=== PATIENT | female | born 1965 | race Two or more races ===

== ENCOUNTER 2017-10-06 07:05 | Outpatient (CLI) | payer OTHER | END 2017-10-06 07:14 | disposition home or self-care (01) | LOC: LAB 07:05 | DX: Z00.01 Encounter for general adult medical examination with abnormal findings (principal); E03.9 Hypothyroidism, unspecified; N39.0 Urinary tract infection, site not specified; E78.2 Mixed hyperlipidemia; Z12.11 Encounter for screening for malignant neoplasm of colon; Z11.4 Encounter for screening for human immunodeficiency virus [HIV]; R79.9 Abnormal finding of blood chemistry, unspecified; R79.89 Other specified abnormal findings of blood chemistry; Z21 Asymptomatic human immunodeficiency virus [HIV] infection status; I10 Essential (primary) hypertension; E55.9 Vitamin D deficiency, unspecified; Z11.3 Encounter for screening for infections with a predominantly sexual mode of transmission ==

== ENCOUNTER 2017-10-24 13:17 | Outpatient (CLI) | payer OTHER | END 2017-10-24 13:27 | disposition home or self-care (01) | LOC: MAMO-SONO 13:17 | DX: Z12.31 Encounter for screening mammogram for malignant neoplasm of breast (principal); N94.0 Mittelschmerz; R10.2 Pelvic and perineal pain; N94.89 Other specified conditions associated with female genital organs and menstrual cycle; N60.01 Solitary cyst of right breast; N60.02 Solitary cyst of left breast ==

== ENCOUNTER 2017-11-10 06:13 | Outpatient (CLI) | payer OTHER | END 2017-11-10 06:25 | disposition home or self-care (01) | LOC: LAB 06:13 → RAD 06:13 | DX: Z01.812 Encounter for preprocedural laboratory examination (principal); Z01.818 Encounter for other preprocedural examination ==

== ENCOUNTER 2017-11-28 05:40 | Day surgery (SDC) | payer OTHER | END 2017-11-28 13:10 | disposition home or self-care (01) | LOC: CIR.AMB 05:40 | DX: N84.0 Polyp of corpus uteri (principal) ==

== ENCOUNTER 2018-05-23 12:44 | Outpatient (CLI) | payer OTHER | END 2018-05-23 13:16 | disposition home or self-care (01) | LOC: LAB 12:44 | DX: H61.311 Acquired stenosis of right external ear canal secondary to trauma (principal) ==

== ENCOUNTER 2020-01-31 16:02 | Outpatient (CLI) | payer OTHER | END 2020-01-31 18:00 | disposition home or self-care (01) | LOC: PPH VACUNA 16:02 | DX: Z23 Encounter for immunization (principal) ==

== ENCOUNTER → 2020-10-01 06:47 | Outpatient (CLI) | payer OTHER | END | disposition home or self-care (01) | LOC: RAD 06:47 | DX: R76.11 Nonspecific reaction to tuberculin skin test without active tuberculosis (principal) ==

== ENCOUNTER → 2020-12-24 14:46 | Outpatient (CLI) | payer OTHER | END | disposition home or self-care (01) | LOC: LAB 14:46 | PROVIDERS: ATTEND Emergency Medicine Pediatric Emergency Medicine | DX: Z03.818 Encounter for observation for suspected exposure to other biological agents ruled out (principal) ==

== ENCOUNTER 2020-12-31 07:05 | Outpatient (CLI) | payer OTHER | END 2020-12-31 09:07 | disposition home or self-care (01) | LOC: LAB 07:05 | PROVIDERS: ATTEND Emergency Medicine Pediatric Emergency Medicine | DX: Z03.818 Encounter for observation for suspected exposure to other biological agents ruled out (principal) ==

== ENCOUNTER 2021-01-02 08:00 | Outpatient (CLI) | payer OTHER | END 2021-01-02 08:30 | disposition home or self-care (01) | LOC: PPH VACUNA 08:00 | DX: Z23 Encounter for immunization (principal) ==

== ENCOUNTER 2021-01-23 10:43 | Outpatient (CLI) | payer OTHER | END 2021-01-23 10:54 | disposition home or self-care (01) | LOC: PPH VACUNA 10:43 | PROVIDERS: ATTEND Emergency Medicine Pediatric Emergency Medicine | DX: Z23 Encounter for immunization (principal) ==

== ENCOUNTER 2021-02-11 08:00 | Outpatient (CLI) | payer OTHER | END 2021-02-11 08:30 | disposition home or self-care (01) | LOC: PPH VACUNA 08:00 | PROVIDERS: ATTEND Emergency Medicine Pediatric Emergency Medicine | DX: Z23 Encounter for immunization (principal) ==

== ENCOUNTER → 2021-07-07 | Outpatient (CLI) | payer OTHER | END | disposition home or self-care (01) | LOC: PPH VACUNA 08:00 | PROVIDERS: ATTEND Emergency Medicine Pediatric Emergency Medicine | DX: Z23 Encounter for immunization (principal) ==

== ENCOUNTER 2021-09-22 13:40 | Outpatient (CLI) | payer OTHER | END 2021-09-22 13:48 | disposition home or self-care (01) | LOC: RAD 13:40 | DX: J18.9 Pneumonia, unspecified organism (principal) ==

== ENCOUNTER 2021-10-15 06:43 | Outpatient (CLI) | payer OTHER | END 2021-10-15 06:49 | disposition home or self-care (01) | LOC: LAB 06:43 | PROVIDERS: ATTEND Obstetrics & Gynecology | DX: I10 Essential (primary) hypertension (principal); E03.9 Hypothyroidism, unspecified; N39.0 Urinary tract infection, site not specified; Z11.4 Encounter for screening for human immunodeficiency virus [HIV]; E55.9 Vitamin D deficiency, unspecified; Z21 Asymptomatic human immunodeficiency virus [HIV] infection status; R79.9 Abnormal finding of blood chemistry, unspecified; R79.89 Other specified abnormal findings of blood chemistry; Z00.00 Encounter for general adult medical examination without abnormal findings ==

== ENCOUNTER 2021-10-16 07:39 | Outpatient (CLI) | payer OTHER | END 2021-10-16 07:45 | disposition home or self-care (01) | LOC: SONOGRAMA 07:39 | PROVIDERS: ATTEND Obstetrics & Gynecology | DX: N94.0 Mittelschmerz (principal); R10.2 Pelvic and perineal pain; N94.89 Other specified conditions associated with female genital organs and menstrual cycle ==

== ENCOUNTER 2021-10-21 07:17 | Outpatient (CLI) | payer OTHER | END 2021-10-21 07:50 | disposition home or self-care (01) | LOC: MAMO-SONO 07:17 | PROVIDERS: ATTEND Obstetrics & Gynecology | DX: N63.0 Unspecified lump in unspecified breast (principal); N64.59 Other signs and symptoms in breast; N64.9 Disorder of breast, unspecified ==

== ENCOUNTER 2021-11-24 06:13 | Outpatient (CLI) | payer OTHER | END 2021-11-24 06:14 | disposition home or self-care (01) | LOC: LAB 06:13 | PROVIDERS: ATTEND Internal Medicine | DX: I10 Essential (primary) hypertension (principal); M54.50 Low back pain, unspecified; Z01.810 Encounter for preprocedural cardiovascular examination; E03.9 Hypothyroidism, unspecified; E78.9 Disorder of lipoprotein metabolism, unspecified; E55.9 Vitamin D deficiency, unspecified; E11.51 Type 2 diabetes mellitus with diabetic peripheral angiopathy without gangrene ==

== ENCOUNTER 2021-12-02 08:43 | Outpatient (CLI) | payer OTHER | END 2021-12-02 08:51 | disposition home or self-care (01) | LOC: SONOGRAMA 08:43 | PROVIDERS: ATTEND Internal Medicine | DX: E03.9 Hypothyroidism, unspecified (principal) ==

== ENCOUNTER 2022-02-19 08:00 | Outpatient (CLI) | payer OTHER | END 2022-02-19 08:05 | disposition home or self-care (01) | LOC: PPH VACUNA 08:00 | PROVIDERS: ATTEND Emergency Medicine Pediatric Emergency Medicine | DX: Z23 Encounter for immunization (principal) ==

== ENCOUNTER → 2022-03-11 06:18 | Outpatient (CLI) | payer OTHER | END | disposition home or self-care (01) | LOC: LAB 06:18 | PROVIDERS: ATTEND Internal Medicine | DX: M54.50 Low back pain, unspecified (principal); E78.9 Disorder of lipoprotein metabolism, unspecified ==

== ENCOUNTER → 2022-04-19 12:47 | Outpatient (CLI) | payer OTHER | END | disposition home or self-care (01) | LOC: LAB 12:47 | PROVIDERS: ATTEND Internal Medicine | DX: Z20.828 Contact with and (suspected) exposure to other viral communicable diseases (principal) ==

== ENCOUNTER 2022-06-21 07:10 | Outpatient (CLI) | payer OTHER | END 2022-06-21 07:31 | disposition home or self-care (01) | LOC: LAB 07:10 | PROVIDERS: ATTEND Internal Medicine | DX: M54.50 Low back pain, unspecified (principal); E78.9 Disorder of lipoprotein metabolism, unspecified ==

== ENCOUNTER 2022-07-12 11:54 | Outpatient (CLI) | payer OTHER | END 2022-07-12 11:55 | disposition home or self-care (01) | LOC: LAB 11:54 | PROVIDERS: ATTEND Obstetrics & Gynecology | DX: N91.1 Secondary amenorrhea (principal); R05.8 Other specified cough ==

== ENCOUNTER 2022-09-20 06:34 | Outpatient (CLI) | payer OTHER | END 2022-09-20 06:38 | disposition home or self-care (01) | LOC: LAB 06:34 | PROVIDERS: ATTEND Internal Medicine | DX: M54.59 Other low back pain (principal); E78.9 Disorder of lipoprotein metabolism, unspecified ==

== ENCOUNTER → 2022-12-27 06:15 | Outpatient (CLI) | payer OTHER | END | disposition home or self-care (01) | LOC: LAB 06:15 | PROVIDERS: ATTEND Internal Medicine | DX: M54.59 Other low back pain (principal); E78.9 Disorder of lipoprotein metabolism, unspecified; Z12.11 Encounter for screening for malignant neoplasm of colon ==

== ENCOUNTER 2023-01-21 07:14 | Outpatient (CLI) | payer OTHER | END 2023-01-21 07:24 | disposition home or self-care (01) | LOC: PPH VACUNA 07:14 | PROVIDERS: ATTEND Emergency Medicine Pediatric Emergency Medicine | DX: Z23 Encounter for immunization (principal) | CPT/HCPCS: 90686; G0008 ==

== ENCOUNTER 2023-04-21 07:15 | Outpatient (CLI) | payer OTHER ==
[2023-04-21 08:04] LABS: HEMOGLOBIN 14.1 g/dL (12.0-15.00); MEAN CELL VOLUME 88.7 fL (80.00-100.00); MEAN CORPUSCULAR HEMOGLOBIN 29.8 pg (27.00-32.0); MEAN CORPUSCULAR HGB CONC 33.6 g/dl (32.0-36.0); PLATELET COUNT 357 K/uL (150-450); RED BLOOD COUNT 4.74 M/uL (4.00-6.00); RED CELL DISTRIBUTION WIDTH 13.8 % (11.5-14.5)
[2023-04-21 08:08] LABS: PH,URINE 7.5 (5.0-8.0); URINE APPEARANCE Clear; URINE BILIRRUBIN Negative (NEGATIVE); URINE BLOOD Trace; URINE COLOR Yellow; URINE GLUCOSE Negative (NEGATIVE); URINE LEUKOCYTE Negative; URINE NITRATE Negative; URINE PROTEIN Negative (NEGATIVE); URINE UROBILINOGEN 0.2 E.U./dl
[2023-04-21 08:11] LABS: URINE BACTERIA 139.6 uL (0.0-1933); URINE RBC 10.2 uL (0.0-20.8)
[2023-04-21 08:13] LABS: URINE WBC 0.1 uL (0.0-23.2)
[2023-04-21 08:49] LABS: BILIRUBIN TOTAL 0.72 mg/dL (0.3-1.2); CALCIUM 9.3 mg/dL (8.5-10.1); CREATININE SERUM 0.58 mg/dL (0.55-1.02); GFR 107.54; GLOBULINA 3.7 G/DL (2.4-3.5); POTASSIUM 3.92 mEq/L (3.5-5.1); TOTAL PROTEIN 7.7 gm/dL (6.4-8.2); TSH 1.63 uIU/mL (0.358-3.74)
[2023-04-21 10:54] LABS: T4 TOTAL 7.26 UG/DL (4.8-13.9)
== END 2023-04-21 07:17 | disposition home or self-care (01) ==
LOC: LAB 07:15
PROVIDERS: ATTEND Emergency Medicine Pediatric Emergency Medicine
DX: M54.59 Other low back pain (principal); E78.9 Disorder of lipoprotein metabolism, unspecified

== ENCOUNTER 2023-07-11 15:21 | Outpatient (CLI) | payer OTHER | END 2023-07-11 15:24 | disposition home or self-care (01) | LOC: RAD 15:21 | DX: J10.00 Influenza due to other identified influenza virus with unspecified type of pneumonia (principal) ==

== ENCOUNTER 2023-08-18 06:21 | Outpatient (CLI) | payer OTHER ==
[2023-08-18 07:32] LABS: HEMATOCRIT 42.5 % (36.0-45.00); HEMOGLOBIN 14.3 g/dL (12.0-15.00); MEAN CELL VOLUME 87.8 fL (80.00-100.00); MEAN CORPUSCULAR HEMOGLOBIN 29.5 pg (27.00-32.0); MEAN CORPUSCULAR HGB CONC 33.6 g/dl (32.0-36.0); PLATELET COUNT 322 K/uL (150-450); RED BLOOD COUNT 4.84 M/uL (4.00-6.00); RED CELL DISTRIBUTION WIDTH 13.7 % (11.5-14.5); URINE BACTERIA 221.7 uL (0.0-1933); URINE EPITHELIAL CELLS 6.1 uL (0.0-38.8); URINE RBC 14.6 uL (0.0-20.8); URINE WBC 5.8 uL (0.0-23.2)
[2023-08-18 07:42] LABS: PH,URINE 5.5; URINE BILIRRUBIN NEGATIVE (NEGATIVE); URINE BLOOD SMALL; URINE GLUCOSE NEGATIVE (NEGATIVE); URINE LEUKOCYTE NEGATIVE; URINE NITRATE NEGATIVE; URINE PROTEIN NEGATIVE (NEGATIVE); URINE UROBILINOGEN 0.2 E.U./dl
[2023-08-18 07:50] LABS: URINE APPEARANCE CLEAR; URINE COLOR YELLOW
[2023-08-18 08:21] LABS: ALBUMIN 4.4 gm/dL (3.4-5.0); BILIRUBIN TOTAL 0.43 mg/dL (0.3-1.2); CALCIUM 9.9 mg/dL (8.5-10.1); CHOL HDL RATIO 3.4 (0-5.0); CREATININE SERUM 0.76 mg/dL (0.55-1.02); GFR 78.72; GLOBULINA 4.1 G/DL (2.4-3.5); POTASSIUM 4.12 mEq/L (3.5-5.1); T4 TOTAL 7.61 UG/DL (4.8-13.9); TOTAL PROTEIN 8.5 gm/dL (6.4-8.2); TSH 1.26 uIU/mL (0.358-3.74)
[2023-08-18 09:47] LABS: ob POSITIVE (NEGATIVE)
== END 2023-08-18 06:23 | disposition home or self-care (01) ==
LOC: LAB 06:21
PROVIDERS: ATTEND Internal Medicine
DX: M54.50 Low back pain, unspecified (principal); E78.9 Disorder of lipoprotein metabolism, unspecified

== ENCOUNTER 2023-11-16 08:20 | Outpatient (CLI) | payer OTHER ==
[2023-11-16 09:17] LABS: HEMATOCRIT 38.5 % (36.0-45.00); HEMOGLOBIN 13.5 g/dL (12.0-15.00); MEAN CELL VOLUME 87.7 fL (80.00-100.00); MEAN CORPUSCULAR HEMOGLOBIN 30.7 pg (27.00-32.0); PLATELET COUNT 288 K/uL (150-450); RED BLOOD COUNT 4.39 M/uL (4.00-6.00); RED CELL DISTRIBUTION WIDTH 13.9 % (11.5-14.5)
[2023-11-16 09:21] LABS: PH,URINE 6.5 (5.0-8.0); URINE APPEARANCE Clear; URINE BILIRRUBIN Negative (NEGATIVE); URINE BLOOD Trace; URINE COLOR Yellow; URINE GLUCOSE Negative (NEGATIVE); URINE LEUKOCYTE Negative; URINE NITRATE Negative; URINE PROTEIN Negative (NEGATIVE); URINE UROBILINOGEN 0.2 E.U./dl
[2023-11-16 09:26] LABS: URINE BACTERIA 37.7 uL (0.0-1933); URINE RBC 13.5 uL (0.0-20.8)
[2023-11-16 09:31] LABS: URINE WBC 0.7 uL (0.0-23.2)
[2023-11-16 09:50] LABS: ALBUMIN 3.9 gm/dL (3.4-5.0); BILIRUBIN TOTAL 0.52 mg/dL (0.3-1.2); CALCIUM 9.8 mg/dL (8.5-10.1); CREATININE SERUM 0.68 mg/dL (0.55-1.02); GFR 89.5; GLOBULINA 3.8 G/DL (2.4-3.5); POTASSIUM 3.89 mEq/L (3.5-5.1); TOTAL PROTEIN 7.7 gm/dL (6.4-8.2)
== END 2023-11-16 08:21 | disposition home or self-care (01) ==
LOC: LAB 08:20
PROVIDERS: ATTEND Internal Medicine
DX: E78.9 Disorder of lipoprotein metabolism, unspecified (principal); I10 Essential (primary) hypertension; E03.9 Hypothyroidism, unspecified; K92.1 Melena; K64.8 Other hemorrhoids

== ENCOUNTER 2024-01-30 07:36 | Outpatient (CLI) | payer OTHER | END 2024-01-30 07:44 | disposition home or self-care (01) | LOC: MAMO-SONO 07:36 | PROVIDERS: ATTEND Internal Medicine | DX: E78.9 Disorder of lipoprotein metabolism, unspecified (principal); I10 Essential (primary) hypertension; E03.9 Hypothyroidism, unspecified; K92.1 Melena; K64.8 Other hemorrhoids ==

== ENCOUNTER 2024-01-31 13:55 | Outpatient (CLI) | payer OTHER | END 2024-01-31 13:58 | disposition home or self-care (01) | LOC: LAB 13:55 | PROVIDERS: ATTEND Preventive Medicine Occupational Medicine | DX: B19.10 Unspecified viral hepatitis B without hepatic coma (principal) ==

== ENCOUNTER 2024-02-21 09:45 | Outpatient (CLI) | payer OTHER | END 2024-02-21 10:00 | disposition home or self-care (01) | LOC: PPH VACUNA 09:45 | PROVIDERS: ATTEND Emergency Medicine Pediatric Emergency Medicine | DX: Z23 Encounter for immunization (principal) ==

== ENCOUNTER 2024-02-23 07:39 | Outpatient (CLI) | payer OTHER ==
[2024-02-23 09:06] LABS: ob NEGATIVE (NEGATIVE)
[2024-02-23 09:09] LABS: PH,URINE 6.5 (5.0-8.0); URINE APPEARANCE Clear; URINE BILIRRUBIN Negative (NEGATIVE); URINE BLOOD Negative; URINE COLOR Yellow; URINE GLUCOSE Negative (NEGATIVE); URINE KETONE Negative (NEGATIVE); URINE LEUKOCYTE Trace; URINE NITRATE Negative; URINE PROTEIN Negative (NEGATIVE); URINE UROBILINOGEN 0.2 E.U./dl
[2024-02-23 09:12] LABS: HEMATOCRIT 40.3 % (36.0-45.00); HEMOGLOBIN 13.8 g/dL (12.0-15.00); MEAN CELL VOLUME 88.8 fL (80.00-100.00); MEAN CORPUSCULAR HEMOGLOBIN 30.3 pg (27.00-32.0); MEAN CORPUSCULAR HGB CONC 34.1 g/dl (32.0-36.0); PLATELET COUNT 321 K/uL (150-450); RED BLOOD COUNT 4.54 M/uL (4.00-6.00); RED CELL DISTRIBUTION WIDTH 13.7 % (11.5-14.5)
[2024-02-23 09:14] LABS: URINE RBC 24.5 uL (0.0-20.8); URINE WBC 4.1 uL (0.0-23.2)
[2024-02-23 10:11] LABS: ALBUMIN 4.2 gm/dL (3.4-5.0); BILIRUBIN TOTAL 0.53 mg/dL (0.3-1.2); CALCIUM 9.7 mg/dL (8.5-10.1); CREATININE SERUM 0.7 mg/dL (0.55-1.02); GFR 86.56; GLOBULINA 3.6 G/DL (2.4-3.5); POTASSIUM 4.49 mEq/L (3.5-5.1); T4 TOTAL 7.41 UG/DL (4.8-13.9); TOTAL PROTEIN 7.8 gm/dL (6.4-8.2); TSH 1.01 uIU/mL (0.358-3.74)
== END 2024-02-23 07:44 | disposition home or self-care (01) ==
LOC: LAB 07:39
PROVIDERS: ATTEND Emergency Medicine Pediatric Emergency Medicine
DX: E78.9 Disorder of lipoprotein metabolism, unspecified (principal); I10 Essential (primary) hypertension; E03.9 Hypothyroidism, unspecified; K92.1 Melena; K64.8 Other hemorrhoids

== ENCOUNTER 2024-05-24 06:31 | Outpatient (CLI) | payer OTHER ==
[2024-05-24 07:27] LABS: PH,URINE 5.5 (5.0-8.0); URINE APPEARANCE Clear; URINE BILIRRUBIN Negative (NEGATIVE); URINE BLOOD Negative; URINE COLOR Yellow; URINE GLUCOSE Negative (NEGATIVE); URINE KETONE Negative (NEGATIVE); URINE LEUKOCYTE Negative; URINE NITRATE Negative; URINE PROTEIN Negative (NEGATIVE); URINE UROBILINOGEN 0.2 E.U./dl
[2024-05-24 07:31] LABS: URINE BACTERIA 8.5 uL (0.0-1933); URINE RBC 2.7 uL (0.0-20.8)
[2024-05-24 07:40] LABS: HEMATOCRIT 41.3 % (36.0-45.00); HEMOGLOBIN 13.5 g/dL (12.0-15.00); MEAN CELL VOLUME 88.3 fL (80.00-100.00); MEAN CORPUSCULAR HEMOGLOBIN 28.9 pg (27.00-32.0); MEAN CORPUSCULAR HGB CONC 32.8 g/dl (32.0-36.0); PLATELET COUNT 335 K/uL (150-450); RED BLOOD COUNT 4.67 M/uL (4.00-6.00); RED CELL DISTRIBUTION WIDTH 13.8 % (11.5-14.5)
[2024-05-24 07:40] LABS: URINE CAST 0.14 uL (0.0-1.40); URINE EPITHELIAL CELLS 0.1 uL (0.0-38.8); URINE WBC 1.1 uL (0.0-23.2)
[2024-05-24 07:47] LABS: ob NEGATIVE (NEGATIVE)
[2024-05-24 08:44] LABS: CHOL HDL RATIO 3.3 (0-5.0); T4 TOTAL 8.4 UG/DL (4.8-13.9); TSH 1.36 uIU/mL (0.358-3.74)
[2024-05-24 14:34] LABS: T3 TOTAL 1.13 ng/ml (0.846-2.02); VITAMIN D3 25 HYDROXY 101.5 ng/ml (30-120)
== END 2024-05-24 06:32 | disposition home or self-care (01) ==
LOC: LAB 06:31
PROVIDERS: ATTEND Internal Medicine
DX: E78.9 Disorder of lipoprotein metabolism, unspecified (principal); I10 Essential (primary) hypertension; E03.9 Hypothyroidism, unspecified; K92.1 Melena; K64.8 Other hemorrhoids; M54.50 Low back pain, unspecified

== ENCOUNTER 2024-06-25 12:30 | Outpatient (CLI) | payer OTHER | END 2024-06-25 12:34 | disposition home or self-care (01) | LOC: RAD 12:30 | DX: J18.9 Pneumonia, unspecified organism (principal) ==

== ENCOUNTER 2024-08-16 06:24 | Outpatient (CLI) | payer OTHER ==
[2024-08-16 07:45] LABS: HEMATOCRIT 41.7 % (36.0-45.00); HEMOGLOBIN 13.6 g/dL (12.0-15.00); MEAN CELL VOLUME 89.4 fL (80.00-100.00); MEAN CORPUSCULAR HEMOGLOBIN 29.2 pg (27.00-32.0); MEAN CORPUSCULAR HGB CONC 32.7 g/dl (32.0-36.0); PLATELET COUNT 303 K/uL (150-450); RED BLOOD COUNT 4.66 M/uL (4.00-6.00); RED CELL DISTRIBUTION WIDTH 13.8 % (11.5-14.5)
[2024-08-16 07:49] LABS: PH,URINE 6.5 (5.0-8.0); URINE APPEARANCE Clear; URINE BILIRRUBIN Negative (NEGATIVE); URINE BLOOD Negative; URINE COLOR Yellow; URINE GLUCOSE Negative (NEGATIVE); URINE KETONE Negative (NEGATIVE); URINE LEUKOCYTE Negative; URINE NITRATE Negative; URINE PROTEIN Negative (NEGATIVE); URINE UROBILINOGEN 0.2 E.U./dl
[2024-08-16 07:53] LABS: URINE EPITHELIAL CELLS 2.5 uL (0.0-38.8); URINE RBC 2.2 uL (0.0-20.8); URINE WBC 3.1 uL (0.0-23.2)
[2024-08-16 08:36] LABS: CHOL HDL RATIO 3.7 (0-5.0); T4 TOTAL 7.87 UG/DL (4.8-13.9); TSH 2.23 uIU/mL (0.358-3.74)
== END 2024-08-16 06:28 | disposition home or self-care (01) ==
LOC: LAB 06:24
PROVIDERS: ATTEND Internal Medicine
DX: E78.9 Disorder of lipoprotein metabolism, unspecified (principal); I10 Essential (primary) hypertension; E03.9 Hypothyroidism, unspecified; K92.1 Melena; K64.8 Other hemorrhoids

== ENCOUNTER → 2024-10-25 12:46 | Outpatient (CLI) | payer OTHER | END | disposition home or self-care (01) | LOC: NUCLEAR 12:46 | PROVIDERS: ATTEND Internal Medicine | DX: Z13.820 Encounter for screening for osteoporosis (principal); M81.0 Age-related osteoporosis without current pathological fracture ==

== ENCOUNTER 2024-11-19 06:07 | Outpatient (CLI) | payer OTHER ==
[2024-11-19 07:27] LABS: BASO % 0.8 % (0.1-1.2); EOS # 0.15 (0.04-0.54); EOS % 2.3 % (0.7-7.0); LYMPH # 2.07 (1.18-3.74); LYMPH % 31.5 % (19.3-53.1); MEAN PLATELET VOLUME 9.00 fl (9.4-12.4); MONO # 0.42 (0.24-0.82); MONO % 6.4 % (4.7-12.5); NEUT # 3.88 (1.56-6.13); NEUT % 58.8 % (34.0-71.1); RED CELL DISTRIBUTION WIDTH 12.8 % (11.6-14.4)
[2024-11-19 07:42] LABS: URINE APPEARANCE Clear; URINE BILIRRUBIN Negative (NEGATIVE); URINE BLOOD Negative; URINE COLOR Yellow; URINE GLUCOSE Negative (NEGATIVE); URINE KETONE Negative (NEGATIVE); URINE LEUKOCYTE Negative; URINE NITRATE Negative; URINE PROTEIN Negative (NEGATIVE); URINE UROBILINOGEN 0.2 E.U./dl
[2024-11-19 07:46] LABS: URINE BACTERIA 60.0 uL (0.0-1933); URINE RBC 2.7 uL (0.0-20.8)
[2024-11-19 08:04] LABS: URINE CAST 0.00 uL (0.0-1.40); URINE EPITHELIAL CELLS 1.2 uL (0.0-38.8); URINE WBC 1.2 uL (0.0-23.2)
[2024-11-19 08:09] LABS: ALT/SGPT 26.0 U/L (12-78); AST/SGOT 17.0 U/L (15-37); BILIRUBIN TOTAL 0.44 mg/dL (0.3-1.2); BUN CREA RATIO 28.0 (7.0-25.0); CREATININE SERUM 0.65 mg/dL (0.55-1.02); GFR 93.95; GLOBULINA 3.5 G/DL (2.4-3.5); GLUCOSE FASTING 86.0 mg/dL (65-100); OSMOLALITY SERUM 284.0 MOSM/KG (275-295); T3 UPTAKE 35.0 % (30-39); T4 TOTAL 6.51 UG/DL (4.8-13.9); TSH 1.71 uIU/mL (0.358-3.74)
[2024-11-19 09:58] LABS: T3 TOTAL 0.869 ng/ml (0.846-2.02); VITAMIN D3 25 HYDROXY 110.2 ng/ml (30-120)
[2024-11-20 11:08] LABS: LEUTEINIZING HORMONE 35.1 mIU/mL (.)
== END 2024-11-19 06:10 | disposition home or self-care (01) ==
LOC: LAB 06:07
PROVIDERS: ATTEND Internal Medicine
DX: E78.9 Disorder of lipoprotein metabolism, unspecified (principal); I10 Essential (primary) hypertension; E03.9 Hypothyroidism, unspecified; K92.1 Melena; K64.8 Other hemorrhoids; Z12.11 Encounter for screening for malignant neoplasm of colon; Z13.820 Encounter for screening for osteoporosis; Z12.31 Encounter for screening mammogram for malignant neoplasm of breast

== ENCOUNTER 2025-01-26 08:54 | Emergency (ER) | payer OTHER ==
[~2025-01-26] VITALS: Ht 152.4 cm; Wt 48.1 kg
[2025-01-26] MEDS ORDERED: OMEGA 3 1,0001 EACH (08:59)
[2025-01-26] MEDS ORDERED: ONDANSETRON HCL 2 MG/ML VIAL IV ONE (09:45)
[2025-01-26] MEDS ORDERED: 0.9 % SODIUM CHLORIDE 500 ML IV SCH (09:45)
[2025-01-26] MEDS ORDERED: FAMOTIDINE/PF 20 MG/2 ML VIAL IV PUSH ONE (09:45)
[2025-01-26 10:33] LABS: BASO % 0.5 % (0.1-1.2); EOS # 0.11 (0.04-0.54); EOS % 0.7 % (0.7-7.0); LYMPH # 1.41 (1.18-3.74); LYMPH % 9.2 % (19.3-53.1); MEAN PLATELET VOLUME 10.70 fl (9.4-12.4); MONO # 1.36 (0.24-0.82); MONO % 8.9 % (4.7-12.5); NEUT # 12.23 (1.56-6.13); NEUT % 80.2 % (34.0-71.1); RED CELL DISTRIBUTION WIDTH 13.5 % (11.6-14.4)
[2025-01-26 12:00] LABS: ALT/SGPT 25.0 U/L (12-78); AST/SGOT 28.0 U/L (15-37); BILIRUBIN TOTAL 0.3 mg/dL (0.3-1.2); BUN CREA RATIO 34.0 (7.0-25.0); CREATININE SERUM 0.61 mg/dL (0.55-1.02); GFR 101.09; GLOBULINA 3.9 G/DL (2.4-3.5); GLUCOSE FASTING 97.0 mg/dL (65-100); OSMOLALITY SERUM 290.0 MOSM/KG (275-295)
== END 2025-01-26 13:37 | disposition home or self-care (01) ==
LOC: ER 08:54
PROVIDERS: Emergency Medicine
DX: A05.9 Bacterial foodborne intoxication, unspecified (principal); R11.10 Vomiting, unspecified; R10.9 Unspecified abdominal pain; Z88.0 Allergy status to penicillin

== ENCOUNTER 2025-02-18 06:12 | Outpatient (CLI) | payer OTHER ==
[~2025-02-18 06:12] MED LIST: OMEGA 3 1,0001 EACH
[2025-02-18 07:50] LABS: URINE APPEARANCE Clear; URINE BILIRRUBIN Negative (NEGATIVE); URINE BLOOD Negative; URINE COLOR Yellow; URINE GLUCOSE Negative (NEGATIVE); URINE KETONE Negative (NEGATIVE); URINE LEUKOCYTE Negative; URINE NITRATE Negative; URINE PROTEIN Negative (NEGATIVE); URINE UROBILINOGEN 0.2 E.U./dl
[2025-02-18 07:54] LABS: URINE BACTERIA 128.3 uL (0.0-1933); URINE EPITHELIAL CELLS 2.1 uL (0.0-38.8); URINE RBC 3.2 uL (0.0-20.8)
[2025-02-18 07:56] LABS: BASO % 0.9 % (0.1-1.2); EOS # 0.15 (0.04-0.54); EOS % 2.3 % (0.7-7.0); LYMPH # 2.14 (1.18-3.74); LYMPH % 32.3 % (19.3-53.1); MEAN PLATELET VOLUME 9.00 fl (9.4-12.4); MONO # 0.43 (0.24-0.82); MONO % 6.5 % (4.7-12.5); NEUT # 3.84 (1.56-6.13); NEUT % 57.8 % (34.0-71.1); RED CELL DISTRIBUTION WIDTH 13.2 % (11.6-14.4)
[2025-02-18 08:00] LABS: URINE CAST 0.00 uL (0.0-1.40); URINE WBC 0.9 uL (0.0-23.2)
[2025-02-18 08:55] LABS: ALT/SGPT 24.0 U/L (12-78); AST/SGOT 17.0 U/L (15-37); BILIRUBIN TOTAL 0.44 mg/dL (0.3-1.2); BUN CREA RATIO 24.0 (7.0-25.0); CREATININE SERUM 0.54 mg/dL (0.55-1.02); GFR 116.36; GLOBULINA 3.7 G/DL (2.4-3.5); GLUCOSE FASTING 92.0 mg/dL (65-100); OSMOLALITY SERUM 281.0 MOSM/KG (275-295)
== END 2025-02-18 06:22 | disposition home or self-care (01) ==
LOC: LAB 06:12
PROVIDERS: ATTEND Internal Medicine
DX: E78.9 Disorder of lipoprotein metabolism, unspecified (principal); I10 Essential (primary) hypertension; E03.9 Hypothyroidism, unspecified; K92.1 Melena; K64.8 Other hemorrhoids; Z12.11 Encounter for screening for malignant neoplasm of colon; Z13.820 Encounter for screening for osteoporosis; Z12.31 Encounter for screening mammogram for malignant neoplasm of breast

== ENCOUNTER 2025-03-06 07:10 | Outpatient (CLI) | payer OTHER | END 2025-03-06 07:20 | disposition home or self-care (01) | LOC: PPH VACUNA 07:10 | PROVIDERS: ATTEND Emergency Medicine Pediatric Emergency Medicine | DX: Z23 Encounter for immunization (principal) ==